=== PATIENT | male | born 1970 | race American Indian/Alaskan Native ===

== ENCOUNTER → 2021-03-02 | Outpatient (CLI) | payer OTHER ==
[~2021-03-02] MED LIST: ASPI81CH PO; KETO15TC TOP; XARELTO15 MG PO
[2021-03-02 08:32] LABS: BASOPHILS PERCENT AUTO 2 % (0-2); EOSINOPHILS ABSOLUTE AUTO 0.29 K/mm3 (0.00-0.68); EOSINOPHILS PERCENT AUTO 6 % (0-6); Hematocrit 42.7 % (37.0-53.0); Hemoglobin 14.4 g/dL (13.5-17.5); IMMATURE GRAN ABSOLUTE AUTO 0.02 K/mm3 (0.00-0.10); IMMATURE GRAN PERCENT AUTO 0 % (0-1); LYMPHOCYTES ABSOLUTE AUTO 1.82 K/mm3 (0.84-5.20); LYMPHOCYTES PERCENT AUTO 35 % (21-46); MONOCYTES ABSOLUTE AUTO 0.45 K/mm3 (0.16-1.47); MONOCYTES PERCENT AUTO 9 % (4-13); Mean Corpuscular HGB 28.6 pg (26.0-34.0); Mean Corpuscular HGB Conc 33.7 g/dL (31.5-36.5); Mean Corpuscular Volume 85 fL (80-100); Mean Platelet Volume 9.8 fL (9.1-12.4); NEUTROPHILS ABSOLUTE AUTO 2.46 K/mm3 (1.96-9.15); NEUTROPHILS PERCENT AUTO 48 % (41-73); Platelet Count 232 K/mm3 (150-400); RDW Coefficient Variation 12.9 % (11.7-14.2); RDW Standard Deviation 39.7 fL (35.1-46.3); Red Blood Cell Count 5.03 M/mm3 (4.30-5.90); White Blood Cell Count 5.14 K/mm3 (4.00-11.30)
== END | disposition home or self-care (01) ==
LOC: LAB SHORT 08:27 → LAB 08:27
PROVIDERS: General Practice
DX: M79.604 Pain in right leg (principal)
CPT/HCPCS: 85025; 85379

== ENCOUNTER 2022-01-16 08:00 | Day surgery (SDC) | payer OTHER ==
[~2022-01-16] VITALS: Ht 182.9 cm; Wt 91.5 kg
== END 2022-01-16 10:13 | disposition home or self-care (01) ==
LOC: ORSCSDS 08:00 → ORD 09:00 → ORSCSDS 09:00 → ORSCMMR 09:00 → ORSCSDS 10:13
PROVIDERS: Internal Medicine Gastroenterology
PROC: 0DBN8ZX Excision of Sigmoid Colon, Via Natural or Artificial Opening Endoscopic, Diagnostic (ICD-10-PCS; principal; 2022-01-16 09:00)
DX: Z12.11 Encounter for screening for malignant neoplasm of colon (principal); D12.5 Benign neoplasm of sigmoid colon; I82.409 Acute embolism and thrombosis of unspecified deep veins of unspecified lower extremity; Z79.82 Long term (current) use of aspirin
CPT/HCPCS: 88305; J2704; J7120

== ENCOUNTER 2022-08-21 08:38 | Emergency (ER) | payer OTHER ==
[~2022-08-21] VITALS: Ht 182.9 cm; Wt 93.0 kg
[2022-08-21 09:43] LABS: Source, Urine Clean Catch
[2022-08-21 09:53] LABS: Bilirubin, Urine Neg (Neg); Blood, Urine 2+ (Neg); Glucose Qualitative, Urine Neg (Neg); Ketones, Urine Neg (Neg); Leukocyte Esterase, Urine Neg (Neg); Nitrite, Urine Neg (Neg); Protein, Urine Neg (Neg); Urobilinogen, Urine NORM (Normal)
[2022-08-21 10:09] LABS: Appearance, Urine Clear (Clear); Color, Urine Yellow (P-Yellow)
[2022-08-21 10:10] LABS: Bacteria Not Seen /hpf; Squamous Epithelial Cells Not Seen /hpf (Few); White Blood Cells, Urine Not Seen /hpf (0-5)
[2022-08-21 10:28] LABS: BASOPHILS ABSOLUTE AUTO 0.05 K/mm3 (0.00-0.23); BASOPHILS PERCENT AUTO 1 % (0-2); EOSINOPHILS ABSOLUTE AUTO 0.18 K/mm3 (0.00-0.68); EOSINOPHILS PERCENT AUTO 3 % (0-6); Hemoglobin 13.3 g/dL (13.5-17.5); IMMATURE GRAN ABSOLUTE AUTO 0.03 K/mm3 (0.00-0.10); IMMATURE GRAN PERCENT AUTO 0 % (0-1); LYMPHOCYTES ABSOLUTE AUTO 1.01 K/mm3 (0.84-5.20); LYMPHOCYTES PERCENT AUTO 14 % (21-46); MONOCYTES PERCENT AUTO 8 % (4-13); Mean Corpuscular HGB 29.2 pg (26.0-34.0); Mean Corpuscular HGB Conc 34.1 g/dL (31.5-36.5); Mean Corpuscular Volume 86 fL (80-100); Mean Platelet Volume 9.8 fL (9.1-12.4); NEUTROPHILS ABSOLUTE AUTO 5.47 K/mm3 (1.96-9.15); NEUTROPHILS PERCENT AUTO 74 % (41-73); Platelet Count 209 K/mm3 (150-400); RDW Coefficient Variation 12.9 % (11.7-14.2); RDW Standard Deviation 39.8 fL (35.1-46.3); Red Blood Cell Count 4.55 M/mm3 (4.30-5.90); White Blood Cell Count 7.34 K/mm3 (4.00-11.30)
[2022-08-21 10:43] LABS: Albumin/Globulin Ratio 1.1 (0.8-1.8); Bilirubin, Total 0.6 mg/dL (0.1-1.0); Bun/Creatinine Ratio 10.3 (12.0-20.0); Calcium, Blood 8.7 mg/dL (8.5-10.1); Creatinine, Blood 1.26 mg/dL (0.60-1.20); Globulin, Blood 3.6 g/dL (2.2-4.0); Potassium, Blood 4.3 mmol/L (3.5-5.5); Total Protein, Blood 7.6 g/dL (6.4-8.2)
[2022-08-21] MEDS ORDERED: Flomax0.4 MG PO (11:47)
[2022-08-21] MEDS ORDERED: Norco 5-325 Ta1 EACH PO (11:47)
[2022-08-21] MEDS ORDERED: ONDA4ODT MM (11:47)
[2022-08-21] MEDS ORDERED: HYDR1TAB94 PO (13:00)
== END 2022-08-21 11:54 | disposition home or self-care (01) ==
LOC: ER 08:38
PROVIDERS: Physician Assistant
DX: N13.2 Hydronephrosis with renal and ureteral calculous obstruction (principal)
CPT/HCPCS: 36415; 74177; 80053; 81001; 85025; 96374-59; 99284-25; J1885; Q9967

== ENCOUNTER 2022-09-05 02:11 | Day surgery (SDC) | payer OTHER ==
[~2022-09-05 02:11] MED LIST changes: +Flomax0.4 MG PO; +HYDR1TAB94 PO; +Norco 5-325 Ta1 EACH PO; +ONDA4ODT MM
== END 2022-09-05 23:00 | disposition home or self-care (01) ==
LOC: WOUND 02:11
DX: S80.872A Other superficial bite, left lower leg, initial encounter (principal)
CPT/HCPCS: A9270; G0463

== ENCOUNTER 2022-09-11 08:00 | Day surgery (SDC) | payer OTHER | END 2022-09-11 23:59 | disposition home or self-care (01) | LOC: WOUND 08:00 | DX: L08.9 Local infection of the skin and subcutaneous tissue, unspecified (principal); L97.822 Non-pressure chronic ulcer of other part of left lower leg with fat layer exposed; S81.802S Unspecified open wound, left lower leg, sequela; S80.87 Other superficial bite of lower leg; Z86.718 Personal history of other venous thrombosis and embolism; Z79.01 Long term (current) use of anticoagulants | CPT/HCPCS: G0463 ==

== ENCOUNTER 2022-10-02 02:59 | Day surgery (SDC) | payer OTHER | END 2022-10-02 23:22 | disposition home or self-care (01) | LOC: WOUND 02:59 | DX: L97.822 Non-pressure chronic ulcer of other part of left lower leg with fat layer exposed (principal); S81.802D Unspecified open wound, left lower leg, subsequent encounter; S80.872D Other superficial bite, left lower leg, subsequent encounter | CPT/HCPCS: G0463 ==

== ENCOUNTER → 2024-05-03 | Outpatient (CLI) | payer OTHER ==
[2024-05-08 12:29] LABS: CALCIUM, URINE - PER 24H 442 mg/d (100-250); CHLORIDE, URINE - PER 24H 212 mmol/d (140-250); CHLORIDE, URINE - PER VOLUME 125 mmol/L; CITRIC ACID, URINE - PER 24H 835 mg/d (320-1240); CITRIC ACID,URINE - PER VOLUME 491 mg/L; CREATININE, URINE - PER 24H 2448 mg/d (800-2100); CREATININE, URINE - PER VOLUME 144 mg/dL; HOURS COLLECTED 24 hr; MAGNESIUM, URINE - PER VOLUME 13.4 mg/dL; MAGNESIUM, URINE PER 24H 228 mg/d (12-199); OXALATE, URINE - PER 24H 26 mg/d (16-49); OXALATE, URINE - PER VOLUME 15 mg/L; PH, URINE 5.91 (5.00-7.50); PHOSPHORUS, URINE - PER 24H 1479 mg/d (400-1300); PHOSPHORUS, URINE - PER VOLUME 87 mg/dL; POTASSIUM, URINE - PER 24H 83 mmol/d (25-125); POTASSIUM, URINE - PER VOLUME 49 mmol/L; SODIUM, URINE - PER 24H 223 mmol/d (51-286); SODIUM, URINE - PER VOLUME 131 mmol/L; SULFATE, URINE - PER 24H 46 mmol/d (6-30); SULFATE, URINE - PER VOLUME 27 mmol/L; TOTAL VOLUME 1700 mL; URIC ACID, URINE - PER 24H 901 mg/d (250-750); URINE SUPERSATURATION INTERP Abnormal; URINE SUPERSATURATION, CAHPO4 3.78; URINE SUPERSATURATION, CAOX 5.93
== END | disposition home or self-care (01) ==
LOC: LAB 05:30 → LAB SHORT 05:30 → LAB FUT 04-20 15:50
PROVIDERS: Urology
DX: N20.2 Calculus of kidney with calculus of ureter (principal)
CPT/HCPCS: 81003; 81050; 82131; 82140; 82340; 82436; 82507; 82570; 83735; 83935; 83945; 84105; 84133; 84300; 84392; 84560

== ENCOUNTER 2024-11-16 10:43 | Day surgery (SDC) | payer OTHER ==
[~2024-11-16] VITALS: Ht 185.4 cm; Wt 93.8 kg
[2024-11-16] VITALS (9 sets, daily range): BP systolic 95–130; BP diastolic 61–86
[~2024-11-16 10:43] MED LIST changes: +TADA10TA PO
[2024-11-16] MEDS ORDERED: Lactated Ringer's 1,000 ML IV SCH (11:00)
[2024-11-16] MEDS ORDERED: CeFAZolin Sodium 2,000 MG in NS 100 ML IV SCH (11:00)
--- NOTE | 2024-11-16 12:03 | NUR ---
PRE-OP NOTE: Pre-Op teaching done. Pt verbalizes understanding. History, Chart, Medications and Allergies reviewed before start of procedure.Patient States Post-Procedure ride home has been arranged.
[2024-11-16] MEDS ORDERED: Bupivacaine 0.5% HCl 5 MG/ML 30MLVIAL ONE (13:06)
[2024-11-16] MEDS ORDERED: FentaNYL Citrate 50 MCG/ML 2 ML Injection ONE ×2 (13:23→15:11)
[2024-11-16] MEDS ORDERED: Midazolam HCl 1MG / ML 2ML Vial ONE ×2 (13:23→15:12)
[2024-11-16] MEDS ORDERED: Dexamethasone Sod Phos 10 MG/ML 1ML VIAL ONE (13:24)
[2024-11-16] MEDS ORDERED: propofoL 0 ML IV ONE (13:24)
[2024-11-16] MEDS ORDERED: Rocuronium Bromide 10 MG/ML 5ML Injection IV ONE (13:24)
[2024-11-16] MEDS ORDERED: Ondansetron HCl 2 MG / ML 2ML Vial ONE (13:24)
[2024-11-16] MEDS ORDERED: Ketorolac Tromethamine 30mg Vial ONE (14:31)
[2024-11-16] MEDS ORDERED: Sugammadex Sodium 200 MG/2ML SDV (100 MG/ML) ONE (14:32)
[2024-11-16] MEDS ORDERED: HYDROmorphone HCl/Pf 1MG SYR ONE (14:32)
[2024-11-16] MEDS ORDERED: HYDROmorphone HCl/Pf 1MG SYR IV PRN ×2 (15:05)
[2024-11-16] MEDS ORDERED: Ondansetron HCl 2 MG / ML 2ML Vial IV PRN (15:10)
[2024-11-16] MEDS ORDERED: FentaNYL Citrate 50 MCG/ML 2 ML Injection IV PRN ×2 (15:10)
[2024-11-16] MEDS ORDERED: ePHEDrine Sulfate 50 MG/ML 1ML Injection IV PRN (15:10)
[2024-11-16] MEDS ORDERED: propofoL 20 ML IV ONE (15:13)
[2024-11-16] MEDS ORDERED: OxyCODONE 5 mg/Acetamin 325 mg TABLET PO PRN (15:20)
[2024-11-16] MEDS ORDERED: Labetalol HCL 5 MG/ML 4ML Injection (Single Dose) ONE (15:35)
[2024-11-16] MEDS ORDERED: HydrALAZINE HCl 20 MG / ML 1ML Vial ONE (15:42)
--- NOTE | 2024-11-16 16:04 | NUR ---
Patient up to Ambulate independently. Gait steady. Discharge instructions reviewed with patient. Patient verbalizes understanding. Copy given to patient to take home. Patient States Post-Procedure ride home has been arranged. Discharged via wheelchair to private car for ride home. PT INCISIONS C/D/I. PT REPORTS PAIN TOLERABLE. REPORTS READY TO GO HOME. PT TOLERATING PO. PT SENT WITH ALL BELONGINGS INCLUDING PT'S RING.
[2024-11-16] MEDS ORDERED: ePHEDrine Sulfate 50 MG/ML 1ML Injection ONE (16:05)
== END 2024-11-16 16:04 | disposition home or self-care (01) ==
LOC: ORSCMMR 10:43 → ORD 12:00 → ORSCMMR 12:00
PROVIDERS: Surgery
PROC: 8E0W4CZ Robotic Assisted Procedure of Trunk Region, Percutaneous Endoscopic Approach (ICD-10-PCS; principal; 2024-11-16 12:00)
PROC: 3E0T3BZ Introduction of Anesthetic Agent into Peripheral Nerves and Plexi, Percutaneous Approach (ICD-10-PCS; principal; 2024-11-16 12:00)
PROC: 0YU54JZ Supplement Right Inguinal Region with Synthetic Substitute, Percutaneous Endoscopic Approach (ICD-10-PCS; principal; 2024-11-16 12:00)
DX: K40.90 Unilateral inguinal hernia, without obstruction or gangrene, not specified as recurrent (principal)
CPT/HCPCS: A9270; C1781; J0360; J0690; J1100; J1171; J1885; J2250; J2405; J2704; J3010; J7120